=== PATIENT | male | born 1985 | race Caucasian/White ===

== ENCOUNTER 2023-11-29 22:05 | Emergency (ER) | payer SELFPAY ==
[~2023-11-29] VITALS: Ht 175.3 cm; Wt 75.0 kg
[2023-11-29 22:12] VITALS: TEMP 98.1; O2SAT 98
[2023-11-29 22:40] VITALS: BP 136/68; PULSE 99; RESP 22
[2023-11-29] MEDS ORDERED: ONDANSETRON HCL 4MG/2ML INJ IV ONE (22:45)
[2023-11-29] MEDS ORDERED: SODIUM CHLORIDE 0.9% 1,000 ML IV ONE (22:45)
== END 2023-11-29 22:53 | disposition home or self-care (01) ==
LOC: ER 22:05
DX: R55 Syncope and collapse (principal); Z76.5 Malingerer [conscious simulation]
CPT/HCPCS: 99283; J7030